=== PATIENT | male | born 1955 | race Two or more races ===

== ENCOUNTER 2025-01-01 21:50 | Emergency (ER) | payer OTHER ==
[~2025-01-01] VITALS: Ht 177.8 cm; Wt 93.0 kg
[2025-01-01] MEDS ORDERED: KETOROLAC TROMETH 60MG/2ML VIAL IM ONE (23:30)
--- NOTE | 2025-01-02 00:12 | ED.PDOC ---
Back pain HPI HPI Comments 69 y/o male presents to the ED via ambulance with acute onset left sided back pain w/o known injury. PT describes pain as sharp shooting radiating type pain statrts in left side lower back traveling into left glute, post upper leg, wrapping around left knee into crespo and top of left foot. 10/10 pain. Worst with walking and bending forward w/ minimal relief factors. He reports otc medications with little to no relieve. He does note some numbness to lower leg, reports no weakness. Denies saddle numbness, loss of bowel/bladder control, foot drop, injury, fever, chills, or abd pain. Reports no significant hx. Further, EMS did a EKG in route which showed a left bundle branch block. PT and son are poor historians, he dose follow w/ cardioligy but is unsure if this is new or w/ hx of. However, he reports no chest pain, dizziness, sob, nasir, or edema. He is unsure why an ekg was performed. Chief Complaint: Lower Extremity Time Seen by MD: 21:56 Reviewed Notes: Nurses Notes, Medications, Allergies Allergies: Coded Allergies: NO KNOWN ALLERGIES (Unverified , 01/01/25) Home Meds Active Scripts Methylprednisolone (Medrol Dosepak) 4 Mg Allen, 4 MG PO UD for 6 Days, #21 TAB UAD Prov:OH MACIAS ALVARADO 01/02/25 Information Source: Patient Mode of Arrival: EMS All Other Systems: Reviewed and Negative (see hpi) Physical Exam General Appearance: No Apparent Distress, Normal HEENT: Pharynx Normal Neck: Full Range of Motion, Non-Tender Respiratory: Lungs Clear, No Respiratory Distress, Normal Breath Sounds Cardiovascular: No Edema, No JVD, No Murmur, No Gallop, Normal Peripheral Pulses, Regular Rate/Rhythm Breast Exam: Deferred Gastrointestinal: No Organomegaly, Non Tender, No Pulsatile Mass, Normal Bowel Sounds, Soft Genitalia: Deferred Pelvic: Deferred Rectal: Deferred Extremities: No calf tenderness, Normal capillary refill, Normal range of motion, Non-tender, No pedal edema Musculoskeletal : Location: Left Extremity Location: Back (Moerate tenderness on palpation L1-5 w/o step-offs or crepitus. Reproduced pain pattern on left side srtraight leg raise. Strength, sensation, and moting is intact. Pedal pulses are 5+. No visable gross exterenal trauma is noted) Apperance: Normal Neurologic: Alert, No Motor Deficits, Normal Affect, Normal Mood, No Sensory Deficits Cerebellar Function: Normal Reflexes: Normal Skin: Dry, Normal Color, Warm Lymphatic: No Adenopathy Was a procedure done? Was a procedure done?: No Back Pain Differential Dx Differential Diagnosis: Fracture, Musculoskeletal Pain X-Ray, Labs, Meds, VS Vital Signs Date Time Temp Pulse Resp B/P (MAP) Pulse Ox O2 Delivery O2 Flow Rate FiO2 01/02/25 01:05 79 01/02/25 00:46 83 19 96 Room Air 01/02/25 00:46 99.4 83 19 146/83 (104) 96 99.4 01/01/25 21:50 98.5 87 20 165/80 98 98.5 X-Ray, Labs, Meds, VS Comment CT LUMBAR FINDINGS: No grossly displaced fractures or subluxations identified. Mild multilevel disc space narrowing and marginal osteophyte formation. This is most apparent at L4- L5 and L5-S1. The bony spinal canal is patent. The sacroiliac joints are symmetric. IMPRESSION: No displaced fractures or subluxations identified. Degenerative changes at the lower lumbar levels. If symptoms persist, follow-up MRI may be obtained further evaluate. Back Pain: CT w/ no acute findings, noted multi level disc disease w/o mention of canal or foramonal stenosis. Patient was given Deca, Toradol, and Ashton w/good relief in pain and function. Likely non radiculopathy. PT is requesting discharge will script trial of medrol dose pack, advised to follow dose pack instructions. F/U w/ his PCP in 2-3 days, consider MRI and referral to pain management if symptoms persist for further workup and pain relief. Discussed return to ER for increase in pain, onset of saddle numbness, weakness, loss of bowel bladder control or foot drop. LBBB: EKG done in ER shows LBBB, reviewed by Dr. 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 PT and son agree w/ dc plam of care and indicated understanding. Time of 1ST Reevaluation: 22:15 Reevaluation 1ST: Unchanged Time of 2ND Reevaluation: 00:40 Reevaluation 2ND: Improved Patient Education/Counseling: Diagnosis, Treatment, Prognosis, Need For Follow Up Family Education/Counseling: Diagnosis, Treatment, Prognosis, Need For Follow Up SEPSIS Sepsis Screen Date sepsis recognized/suspect: Jan 01, 2025 Time Sepsis recognized/suspect: 2149 Recent Procedure: No On Antibiotic Therapy: No Respiratory Rate >20: No Heart Rate >90: No Temp<36 C (96.8 F) or >38.3 C: No SBP <90 or MAP <65 mmHG: No New Acute Mental Status Change: No Is the patient on CPAP, BIPAP,: No Physician Orders Ls Spine Wo Contrast (01/01/25 23:39) Electrocardigram (01/02/25 01:09) Vital Signs Date Time Temp Pulse Resp B/P (MAP) Pulse Ox O2 Delivery O2 Flow Rate FiO2 01/02/25 01:05 79 01/02/25 00:46 83 19 96 Room Air 01/02/25 00:46 99.4 83 19 146/83 (104) 96 99.4 01/01/25 21:50 98.5 87 20 165/80 98 98.5 Departure 1 Departure Time of Disposition: 00:52 Impression: Primary Impression: Multilevel degenerative disc disease Disposition: 01 HOME / SELF CARE / HOMELESS Condition: Stable e-Prescriptions Methylprednisolone (Medrol Dosepak) 4 Mg Allen 4 MG PO UD for 6 Days, #21 TAB UAD Prov: OH MACIAS 01/02/25 Discharged With: Other (son) Critical Care Note Critical Care Time?: No Stability Stability form required: OH Aly Jan 02, 2025 00:12
[2025-01-02] MEDS: HYDROcodone-ACET 10/325MG TAB PO ONE (00:45)
[2025-01-02 00:46] VITALS: BP 146/83; RESP 19; TEMP 99.4; O2SAT 96
[2025-01-02] MEDS: KETOROLAC TROMETH 30 MG/ML 1ML VIAL IV ONE (00:47)
--- NOTE | 2025-01-02 00:48 | DVH ---
CT OF THE LUMBAR SPINE WITHOUT CONTRAST HISTORY: Left-sided sciatica pain COMPARISON: None available TECHNIQUE: Thin section helical axial scans of the lumbar spine obtained. Sagittal and coronal reform atted images were performed. One or more of the following radiation dose reduction techniques were us ed for this examination: automated exposure control, adjustment of the mA and/or kV according to chuy ent size, use of iterative reconstruction technique. FINDINGS: No grossly displaced fractures or subluxations identified. Mild multilevel disc space narrowing and m arginal osteophyte formation. This is most apparent at L4-L5 and L5-S1. The bony spinal canal is pa tent. The sacroiliac joints are symmetric. IMPRESSION: No displaced fractures or subluxations identified. Degenerative changes at the lower lumbar levels. If symptoms persist, follow-up MRI may be obtained f chetan matute.
[2025-01-02 01:05] VITALS: PULSE 79
[2025-01-02] MEDS ORDERED: METH4PAK PO (01:36)
--- NOTE | 2025-01-02 09:17 | ECG ---
[facility] Test Date: 2025-01-02 Test Time: 01:05:32 Pat Name: KHANH LOVELACE Department: Room: Gender: M Fur Mixer: : [id number] Requested By: OH MACIAS Order Number: [id number] Reading MD: Adiel Garcia Measurements Intervals [place] Rate: 79 P: 78 SC: 138 QRS: 59 QRSD: 135 T: 268 QT: 412 QTc: 473 Interpretive Statements Sinus rhythm Left bundle branch block Electronically Signed On 01-02-2025 18:25:57 PDT by Adiel Garcia Please click the below link to view image of tracing.
== END 2025-01-02 01:48 | disposition home or self-care (01) ==
LOC: ER 21:50 → EDBD 21:50 → ER 01-02 01:48
DX: M51.369 Other intervertebral disc degeneration, lumbar region without mention of lumbar back pain or lower extremity pain (principal); Z79.899 Other long term (current) drug therapy
CPT/HCPCS: 72131; 93005; 96374; 96375; 99284; J1100; J1885